=== PATIENT | female | born 1995 | race Caucasian/White ===

== ENCOUNTER 2020-03-24 03:44 | Emergency (ER) | payer OTHER, SELFPAY ==
[2020-03-24 03:58] VITALS: BP 149/90; PULSE 81; RESP 26; TEMP 36.9; O2SAT 100; BMI 43.6
--- NOTE | 2020-03-24 03:58 | ED_ITS ---
HPI - Female Genitourinary General Stated complaint: flank pain Time Seen by Provider: 03/24/20 03:53 Related Data Allergies Allergy/AdvReac Type Severity Reaction Status Date / Time No Known Allergies Allergy Unverified 12/24/19 16:28 [facility] Past Medical History Medical History (Updated 03/24/20 @ 04:00 by Mark Magaña) Kidney calculi
--- NOTE | 2020-03-24 04:06 | ED_ITS ---
HPI - Abdominal Pain General Chief Complaint: Abdominal Pain Stated Complaint: flank pain Time Seen by Provider: 03/24/20 03:53 Source: patient Mode of arrival: ambulatory Limitations: no limitations History of Present Illness HPI narrative: This is a 24-year-old female who presents with onset right flank pain that started yesterday and she states that went away and then woke her up to 30 in the morning with excruciating pain that is located in the right lower quadrant she also feels it in her back with some radiation to the groin area. This is not been associated with any fever, chills, nausea, vomiting, urinary pain/burning/frequency. Patient states that her period is irregular but that she is not sexually active. Related Data Allergies Allergy/AdvReac Type Severity Reaction Status Date / Time No Known Allergies Allergy Unverified 12/24/19 16:28 Review of Systems Review of Systems Pertinent positives and negatives as stated in HPI 10 point review of systems is otherwise negative. Physical Exam Vital Signs: Vital Signs: Last Vital Signs Temp 98.5 F 03/24/20 03:58 Pulse 75 03/24/20 06:14 Resp 20 03/24/20 06:14 BP 116/76 03/24/20 06:14 Pulse Ox 100 03/24/20 06:14 Body Mass Index 43.6 VITAL SIGNS: Reviewed. GENERAL: Well developed, well nourished, in no acute distress. HEAD: Normocephalic/atraumatic, EYES: PERRLA, EOMI intact without pain, no nystagmus/pallor/icterus noted EARS: Ext canals without abnormality, TMs non-bulging and non-erythematous NOSE: Nares patent bilateral OROPHARYNX: no oral lesions noted, posterior pharynx clear and non-erythematous without noted tonsillar enlargement/erythema/exudates NECK: Supple, no adenopathy LUNGS: Normal breath sounds. No adventitious sounds or accessory muscle use. SpO2<100> CARDIOVASCULAR: Regular rate and rhythm without noted murmurs, no JVD or lower extremity edema. ABDOMEN: Soft, RLQ tenderness without rebound, non-distended with bowel sounds. No rigidity. No guarding. No palpable masses or hernias noted MUSCULOSKELETAL: No tenderness, deformities, or effusions noted on gross inspection. EXTREMITIES: No cyanosis, clubbing or edema. SKIN: Inspection of the skin reveals no rashes, ulcerations, jaundice, pallor, o r petechiae. NEUROLOGIC: Alert and oriented x 4. Strength and sensation to light touch were grossly intact x 4. Course Course Course Narrative: This is a 24-year-old female with history and clinical presentation suggestive of renal colic but will rule out appendicitis and doubt UTI or ovarian cyst. -labs, UA, U preg, pain medication, Zofran, IV fluids, CT scan Signed out to Dr Tenorio MDM - Abdominal Pain Lab Data Result diagrams: 03/24/20 04:28 03/24/20 04:28 Labs: Lab Results 03/24/20 03/24/20 Range/Units 04:28 04:28 WBC 7.6 (4.8-10.8) X10*3/uL RBC 5.17 (4.20-5.50) X10*6/uL Hgb 13.3 (12.0-16.0) g/dl Hct 40.6 (37-47) % MCV 78.5 L (80-98) fL MCH 25.7 L (27.0-33.0) pg MCHC 32.8 (31.0-35.0) g/dl RDW 13.1 (11.0-16.0) % Plt Count 355 (160-400) X10*3/uL MPV 9.1 L (9.4-12.3) fL Immature Gran % (Auto) 0.1 (0.0-0.4) % Neut % (Auto) 56.7 (45-73) % Lymph % (Auto) 31.3 (20-40) % [place] % (Auto) 9.1 (2-11) % Eos % (Auto) 2.1 (0-4) % Baso % (Auto) 0.7 (0-2) % Lymph # (Auto) 2.4 (1.2-4.9) X10*3/uL [place] # (Auto) 0.7 (0.1-1.2) X10*3/uL Eos # (Auto) 0.2 (0.0-0.4) X10*3/uL Baso # (Auto) 0.1 (0.0-0.2) X10*3/uL Abs Immat Gran (auto) 0.01 (0.00-0.03) X10*3/uL Absolute Neuts (auto) 4.3 (2.0-8.3) X10*3/uL Absolute Nucleated RBC 0.000 (0.0-0.012) X10*3/uL Nucleated RBC % (auto) 0.0 (0.0-0.2) /100WBC Sodium 138 (135-145) mmol/L Potassium 4.2 (3.3-5.1) mmol/l Chloride 103 (96-108) mmol/L Carbon Dioxide 22 (22-29) mmol/L Anion Gap 17 (12-20) BUN 13 (9-16) mg/dL Creatinine 0.74 (0.5-1.4) mg/dL Estim Creat Clear Calc 157.9 Estimated GFR > 60 Random Glucose 114 (60-115) mg/dL Calcium 8.8 (8.4-10.2) mg/dL Total Bilirubin 0.4 (0.0-1.0) mg/dL AST 25 (5-31) U/L ALT 38 H (0-31) U/L Alkaline Phosphatase 75 (39-117) U/L Total Protein 7.6 (6.5-8.0) g/dL Albumin 4.2 (3.5-5.0) g/dL Beta HCG, Quant < 2 mIU/mL [facility] Past Medical History Source: nursing notes reviewed Medical History Kidney calculi Social History Social History Alcohol intake: never Smoking Status: Never smoker Use of substances other than those prescribed or required for medical reasons: No Advance Directives: No Advance Directives Information Provided: No
[2020-03-24 04:32] VITALS: RESP 20
[2020-03-24 04:32] LABS: Basophils Absolute Auto 0.1 X10*3/uL (0.0-0.2); Basophils Percent Auto 0.7 % (0-2); Eosinophils Absolute Auto 0.2 X10*3/uL (0.0-0.4); Eosinophils Percent Auto 2.1 % (0-4); Hematocrit 40.6 % (37-47); Hemoglobin 13.3 g/dl (12.0-16.0); Imm Gran Abs Auto 0.01 X10*3/uL (0.00-0.03); Imm Gran Pct Auto 0.1 % (0.0-0.4); Lymphocytes Absolute Auto 2.4 X10*3/uL (1.2-4.9); Lymphocytes Percent Auto 31.3 % (20-40); Mean Corpuscular HGB Conc 32.8 g/dl (31.0-35.0); Mean Corpuscular Hemoglobin 25.7 pg (27.0-33.0); Mean Corpuscular Volume 78.5 fL (80-98); Mean Platelet Volume 9.1 fL (9.4-12.3); Monocytes Absolute Auto 0.7 X10*3/uL (0.1-1.2); Monocytes Percent Auto 9.1 % (2-11); Neutrophils Absolute Auto 4.3 X10*3/uL (2.0-8.3); Neutrophils Percent Auto 56.7 % (45-73); Platelet Count 355 X10*3/uL (160-400); Red Blood Count 5.17 X10*6/uL (4.20-5.50); Red Cell Distribution Width 13.1 % (11.0-16.0); White Blood Count 7.6 X10*3/uL (4.8-10.8)
[2020-03-24] MEDS: fentaNYL citrate/PF 100 MCG/2 ML VIAL 25 MCG IVPUSH (04:32)
[2020-03-24] MEDS: ondansetron HCL 4 MG/2 ML VIAL IVPUSH (04:32)
[2020-03-24 04:35] LABS: MANUAL DIFF FLAG NO
[2020-03-24 04:58] VITALS: BP 141/92; PULSE 60; RESP 18; O2SAT 96
[2020-03-24] MEDS: Ketorolac Tromethamine 15 MG/ML VIAL IVPUSH (05:05)
[2020-03-24 05:21] LABS: HCG Quantitative < 2 mIU/mL
[2020-03-24 05:23] LABS: Alanine Aminotransferase 38 U/L (0-31); Albumin Level 4.2 g/dL (3.5-5.0); Alkaline Phosphatase 75 U/L (39-117); Anion Gap 17 (12-20); Aspartate Amino Transferase 25 U/L (5-31); Bilirubin Total 0.4 mg/dL (0.0-1.0); Blood Urea Nitrogen 13 mg/dL (9-16); Calcium 8.8 mg/dL (8.4-10.2); Carbon Dioxide 22 mmol/L (22-29); Chloride 103 mmol/L (96-108); Creatinine Clr Calc Pharmacy 157.9; Estimated Glomerular Filt Rate > 60; Glucose Random 114 mg/dL (60-115); Potassium 4.2 mmol/l (3.3-5.1); Sodium 138 mmol/L (135-145); Total Protein 7.6 g/dL (6.5-8.0)
--- NOTE | 2020-03-24 05:23 | PC.NURSE ---
pt is in the bathroom. pain level is 3/10 and feels improved. labs pending.
--- NOTE | 2020-03-24 05:25 | CT_ITS ---
EXAMINATION: CT ABDOMEN AND PELVIS WITHOUT CONTRAST CLINICAL INFORMATION: Right flank pain. COMPARISON: 10/25/2017. TECHNIQUE: Contiguous axial thin section helical images of the abdomen and pelvis were performed without oral or IV contrast. The data set was reformatted in the coronal and sagittal planes and reviewed on an independent workstation. DLP: 974 mGy-cm. FINDINGS: The visualized lung bases are clear. The visualized portions of the heart are unremarkable. The liver is of normal size and attenuation without focal lesions nor intrahepatic biliary ductal dilation. A normal gallbladder is identified. There is no wall thickening or discernible pericholecystic fluid. The spleen, pancreas, adrenal glands are unremarkable. Both kidneys are of normal size and attenuation. There is a 3 mm obstructive right UVJ calculus with associated grade 2 hydroureteronephrosis. There is no abdominal free fluid. There is neither mesenteric nor retroperitoneal lymphadenopathy. Normal unopacified loops of small and large bowel are identified. A normal appendix is present. There is no pelvic free fluid. The urinary bladder is unremarkable. There is neither pelvic nor inguinal lymphadenopathy. Bone windows: Neither sclerotic nor lytic bone lesions are identified. CT/CT abdomen pelvis wo con IMPRESSION: Right grade 2 hydroureteronephrosis secondary to an obstructive 3 mm right UVJ calculus. Automated exposure control (Care Dose) Adjustment of the mA and/or kv according to patient size (this includes techniques or standardized protocols for targeted exams where dose is matched to indication / reason for exam; i.e. extremities or head).
[2020-03-24 06:14] VITALS: BP 116/76; PULSE 75; RESP 20; O2SAT 100
== END 2020-03-24 07:21 | disposition home or self-care (01) ==
PROVIDERS: Student in an Organized Health Care Education/Training Program; Emergency Provider Emergency Medicine Emergency Medical Services
DX: R10.31 Right lower quadrant pain (principal)
CPT/HCPCS: 36415; 74176; 80053; 84702; 85025; 96374; 96375; 99284; J1885; J2405; J3010

== ENCOUNTER 2021-05-10 14:24 | Emergency (ER) | payer OTHER, SELFPAY ==
[2021-05-10 14:30] VITALS: BP 139/82; PULSE 93; RESP 16; TEMP 37; O2SAT 99; BMI 38.7
[2021-05-10 15:33] LABS: Appearance Urine HAZY; Color Urine YELLOW; Glucose Urine UA NEG (NEG); Leukocyte Esterase Urine NEG (NEG); Nitrite Urine NEG (NEG); PH 5.5 (5.0-8.0); Specific Gravity - Urine >= 1.030 (1.005-1.025); UACC Culture Trigger NO; Urine Blood 3+ (NEG); Urine Ketones NEG (NEG); Urine Protein TRACE MG/DL (NEG-TRACE)
[2021-05-10 15:37] LABS: MANUAL DIFF FLAG NO
[2021-05-10 15:39] LABS: Basophils Percent Auto 0.5 % (0-2); Eosinophils Absolute Auto 0.1 X10*3/uL (0.0-0.4); Eosinophils Percent Auto 1.1 % (0-4); Hematocrit 39.8 % (37.0-47.0); Hemoglobin 13.2 g/dl (12.0-16.0); Imm Gran Abs Auto 0.02 X10*3/uL (0.00-0.03); Imm Gran Pct Auto 0.3 % (0.0-0.4); Lymphocytes Absolute Auto 2.2 X10*3/uL (1.2-4.9); Lymphocytes Percent Auto 30.5 % (20-40); Mean Corpuscular HGB Conc 33.2 g/dl (31.0-35.0); Mean Corpuscular Volume 78.5 fL (80.0-98.0); Mean Platelet Volume 9.3 fL (9.4-12.3); Monocytes Absolute Auto 0.4 X10*3/uL (0.1-1.2); Monocytes Percent Auto 5.4 % (2-11); Neutrophils Absolute Auto 4.5 x10*3/uL (2.0-8.3); Neutrophils Percent Auto 62.2 % (45-73); Platelet Count 362 X10*3/uL (160-400); Red Blood Count 5.07 X10*6/uL (4.20-5.50); Red Cell Distribution Width 13.2 % (11.0-16.0); White Blood Count 7.3 X10*3/uL (4.8-10.8)
[2021-05-10 15:41] LABS: Bacteria Urine 1+ /LPF; Squamous Epithelial Cell Urine 1+ /LPF
[2021-05-10 15:42] LABS: WBC Urine 0 /HPF (0-4)
[2021-05-10 15:47] LABS: Alanine Aminotransferase 20 U/L (0-31); Albumin Level 4.3 g/dL (3.5-5.0); Alkaline Phosphatase 92 U/L (39-117); Anion Gap 12 (12-20); Aspartate Amino Transferase 17 U/L (5-31); Bilirubin Total 0.4 mg/dL (0.0-1.0); Blood Urea Nitrogen 9 mg/dL (9-16); Calcium 9.6 mg/dL (8.4-10.2); Carbon Dioxide 26 mmol/L (22-29); Chloride 106 mmol/L (96-108); Creatinine Clr Calc Pharmacy 151.2; Estimated Glomerular Filt Rate > 60; Glucose Random 99 mg/dL (60-115); Potassium 4.4 mmol/L (3.3-5.1); Sodium 140 mmol/L (135-145); Total Protein 7.7 g/dL (6.5-8.0)
--- NOTE | 2021-05-10 17:28 | ED_ITS ---
HPI - Abdominal Pain General Chief Complaint: Abdominal Pain Stated Complaint: Kidney stone Time Seen by Provider: 05/10/21 17:11 Source: patient and old records reviewed History of Present Illness HPI narrative: Patient with left flank pain radiating to left groin which started earlier today. She has a history of kidney stones and states this is identical to past except it hurts a little worse than usual. She thinks she has had about 5 kidney stones in her life. All up and confirmed with CT scan. Some nausea without vomiting. Pain at times is 10/10. Currently it is 5/10. It is waxing and waning. It started in her back and now is radiating to her left lower abdomen. No dysuria his hematuria hesitancy or frequency. No fevers or chills. No other recent illness. Related Data Previous Rx's Medication Instructions Recorded morphine 15 mg immediate release 15 mg PO Q4H PRN #12 tab 03/24/20 tablet ibuprofen 800 mg tablet 800 mg PO Q8H PRN #30 tab 05/10/21 oxycodone-acetaminophen 5 mg-325 1 tab PO TID PRN #7 tab 05/10/21 mg tablet (Percocet) tamsulosin 0.4 mg capsule (Flomax) 0.4 mg PO DAILY #10 cap 05/10/21 Allergies Allergy/AdvReac Type Severity Reaction Status Date / Time No Known Allergies Allergy Unverified 12/24/19 16:28 Review of Systems Comments: No fevers or chills Comments: No chest pain Comments: No dyspnea cough or sputum Comments: Left lower abdominal pain radiating to her flank Comments: No dysuria hematuria hesitancy or frequency Comments: No extremity pain Comments: No rash Comments: No weakness numbness or paresthesias Physical Exam Verdana 4l Vital Signs: Verdana 4d Verdana 4d Vital Signs: Verdana 4d Verdana 4Bd Last Vital Signs Verdana 4d Post Doctoral Fellow New 4d Post Doctoral Fellow New 4d Temp 98.6 F 05/10/21 14:30 Post Doctoral Fellow New 4d Pulse 93 05/10/21 14:30 Post Doctoral Fellow New 4d Resp 16 05/10/21 14:30 BP 139/82 05/10/21 14:30 Pulse Ox 99 05/10/21 14:30 BMI result Body Mass Index 38.7 Const: Other: Awake and alert in no acute distress Resp: Other: Clear and equal bilaterally without wheezes rales or rhonchi Cardio: Other: Regular rate and rhythm without murmurs rubs or gallops GI: Other: Soft, nondistended, normoactive bowel sounds. Minimal tenderness left lower abdomen. Minimal tenderness on the left flank percussion. Skin: Other: Warm pink and dry Neuro: Other: Neurologically nonfocal Extrem: Other: Ambulates without difficulty Course Course Course Narrative: Kidney stone Pyelonephritis Musculoskeletal pain Workup shows red cells in the urinalysis without evidence of infection. Remainder of workup is unremarkable. I discussed with patient option of ordering a CT scan to confirm this is kidney stone versus treating empirically as symptoms are consistent with multiple prior confirmed episodes of stone. Patient opts to not have a CT scan today. Will follow up with Urology. In the meantime will treat with IV fluids and IV Toradol for pain control. Will discharge home with prescription for ibuprofen, Percocet, Flomax. 6:36 p.m.. Patient is feeling much better. Stable for discharge home MDM - Abdominal Pain Lab Data Result diagrams: 05/10/21 15:29 05/10/21 15:28 Labs: Lab Results 05/10/21 05/10/21 05/10/21 Range/Units 15:27 15:28 15:29 WBC 7.3 (4.8-10.8) X10*3/uL RBC 5.07 (4.20-5.50) X10*6/uL Hgb 13.2 (12.0-16.0) g/dl Hct 39.8 (37.0-47.0) % MCV 78.5 L (80.0-98.0) fL MCH 26.0 L (27.0-33.0) pg MCHC 33.2 (31.0-35.0) g/dl RDW 13.2 (11.0-16.0) % Plt Count 362 (160-400) X10*3/uL MPV 9.3 L (9.4-12.3) fL Immature Gran % (Auto) 0.3 (0.0-0.4) % Neut % (Auto) 62.2 (45-73) % Lymph % (Auto) 30.5 (20-40) % [place] % (Auto) 5.4 (2-11) % Eos % (Auto) 1.1 (0-4) % Baso % (Auto) 0.5 (0-2) % Lymph # (Auto) 2.2 (1.2-4.9) X10*3/uL [place] # (Auto) 0.4 (0.1-1.2) X10*3/uL Eos # (Auto) 0.1 (0.0-0.4) X10*3/uL Baso # (Auto) 0.0 (0.0-0.2) X10*3/uL Abs Immat Gran (auto) 0.02 (0.00-0.03) X10*3/uL Absolute Neuts (auto) 4.5 (2.0-8.3) x10*3/uL Absolute Nucleated RBC 0.000 (0.0-0.012) X10*3/uL Nucleated RBC % (auto) 0.0 (0.0-0.2) /100WBC Sodium 140 (135-145) mmol/L Potassium 4.4 (3.3-5.1) mmol/L Chloride 106 (96-108) mmol/L Carbon Dioxide 26 (22-29) mmol/L Anion Gap 12 (12-20) BUN 9 (9-16) mg/dL Creatinine 0.71 (0.5-1.4) mg/dL Estim Creat Clear Calc 151.2 Estimated GFR > 60 Random Glucose 99 (60-115) mg/dL Calcium 9.6 D (8.4-10.2) mg/dL Total Bilirubin 0.4 (0.0-1.0) mg/dL AST 17 (5-31) U/L ALT 20 (0-31) U/L Alkaline Phosphatase 92 D (39-117) U/L Total Protein 7.7 (6.5-8.0) g/dL Albumin 4.3 (3.5-5.0) g/dL Urine Color YELLOW Urine Appearance HAZY Urine pH 5.5 (5.0-8.0) Ur Specific [place] >= 1.030 H (1.005-1.025) Urine Protein TRACE (NEG-TRACE) MG/DL Urine Glucose (UA) NEG (NEG) MG/DL Urine Ketones NEG (NEG) MG/DL Urine Blood 3+ H (NEG) Urine Nitrite NEG (NEG) Ur Leukocyte Esterase NEG (NEG) Urine RBC 15-29 H (0) /HPF Urine WBC 0 (0-4) /HPF Ur Squamous Epith Cells 1+ /LPF Urine Bacteria 1+ /LPF Urine Yeast 1+ /HPF Discharge Plan Discharge Clinical Impression: Kidney stone Patient Disposition: Home, Self-Care Instructions: Kidney Stones (ED), How to Strain Your Urine (ED) Prescriptions: New oxycodone-acetaminophen [Percocet] 5-325 mg tablet 1 tab PO TID PRN (Reason: pain) Qty: 7 0RF tamsulosin [Flomax] 0.4 mg capsule 0.4 mg PO DAILY Qty: 10 0RF ibuprofen 800 mg tablet 800 mg PO Q8H PRN (Reason: pain) Qty: 30 0RF No Action morphine 15 mg tablet 15 mg PO Q4H PRN (Reason: pain) Qty: 12 0RF Referrals: Burt Jimenez MD [Physician] - 2 days Stand Alone Forms: Work/School Release [facility] Past Medical History Medical History Kidney calculi Social History Social History Alcohol intake: never Advance Directives: No Advance Directives Information Provided: No Patient : No
[2021-05-10] MEDS: 0.9 % Sodium Chloride 1,000 ML 999 ML IV (17:32)
[2021-05-10] MEDS: Ketorolac Tromethamine 30 MG/ML VIAL IVPUSH (17:32)
[2021-05-10 19:11] VITALS: BP 118/77; PULSE 67; RESP 16; O2SAT 100
== END 2021-05-10 19:13 | disposition home or self-care (01) ==
PROVIDERS: Emergency Provider Emergency Medicine; PCP Nurse Practitioner Family
DX: N20.0 Calculus of kidney (principal); R10.9 Unspecified abdominal pain; Z79.899 Other long term (current) drug therapy
CPT/HCPCS: 36415; 80053; 81001; 85025; 96361; 96374; 99283; 99284; J1885

== ENCOUNTER 2021-05-30 18:59 | Emergency (ER) | payer OTHER, SELFPAY ==
--- NOTE | ~2021-05-30 | CT_ITS ---
EXAMINATION: CT ABDOMEN AND PELVIS WITHOUT CONTRAST CLINICAL INFORMATION: Left flank pain with history of renal colic COMPARISON: CT abdomen pelvis 03/24/2020 TECHNIQUE: Multidetector volumetric imaging was performed from the superior aspect of the liver through the pubic symphysis. Sagittal and coronal reformatted images were obtained on the technologist's workstation. This CT examination was performed using dose optimization techniques as appropriate, variously including the following: *Automated exposure control *Adjustment of mA and/or kV according to patient size (this includes techniques or standardized protocols for targeted exams where dose is matched to indication/reason for exam; i.e. extremities or head) *Use of iterative reconstruction technique DLP: 913 mGy-cm FINDINGS: LUNG BASES: The visualized lung bases are unremarkable. LIVER, GALLBLADDER, AND BILIARY TREE: The liver is normal in size, shape, and attenuation. No focal hepatic lesion or biliary ductal dilatation is present. The gallbladder is unremarkable with no evidence of radiopaque gallstones, gallbladder wall thickening, or obvious pericholecystic inflammatory changes. PANCREAS: Unremarkable. SPLEEN: Unremarkable. A splenule is present. ADRENAL GLANDS: Unremarkable. KIDNEYS AND URETERS: In the left kidney, there is mild prominence of the renal collecting system and there is a 4 mm stone at the left ureterovesical junction. No intrarenal calculi are seen on the left and no renal masses are seen In the right kidney, there is a punctate 2 mm lower pole calculus present. No pelvocaliectasis or renal masses are seen. No ureteral calculi. BLADDER: Aside from stone at left UVJ, no other abnormality is seen GASTROINTESTINAL TRACT: The small and large bowel are unremarkable. The appendix is unremarkable. ABDOMINAL WALL: No significant hernia is appreciated. LYMPH NODES: No retroperitoneal lymphadenopathy. VASCULAR: Unremarkable. PELVIC VISCERA: An anteverted uterus is present. An abnormal adnexal mass or free intraperitoneal fluid is not seen OSSEOUS STRUCTURES: Unremarkable. CT/CT abdomen pelvis wo con IMPRESSION: * 4 mm obstructing calculus at the left ureterovesical junction. * Small 2 mm nonobstructing calculus in the right lower pole. Fleischner guidelines were followed.
[2021-05-30 20:03] VITALS: BP 134/75; PULSE 96; RESP 18; TEMP 36.4; O2SAT 99; BMI 40.3
[2021-05-30 20:37] LABS: Appearance Urine CLEAR; Color Urine YELLOW; Glucose Urine UA NEG (NEG); Leukocyte Esterase Urine NEG (NEG); Nitrite Urine NEG (NEG); Specific Gravity - Urine >= 1.030 (1.005-1.025); Urine Blood NEG (NEG); Urine Ketones NEG (NEG); Urine Protein NEG (NEG-TRACE)
[2021-05-30 22:03] LABS: UPreg QC Valid YES; Urine Pregnancy NEGATIVE (NEGATIVE)
--- NOTE | 2021-05-30 22:19 | ED_ITS ---
HPI - Abdominal Pain General Chief Complaint: Urogenital-Female Stated Complaint: lower back pain Time Seen by Provider: 05/30/21 20:20 Source: patient Mode of arrival: ambulatory History of Present Illness HPI narrative: 26-year-old presents with left-sided back pain/flank pain that radiates into the left pelvic area and results in urinary frequency and burning, and has a history of renal colic. The symptoms have been associated with nausea when the pain is maximal but denies any fever, chills. Related Data Previous Rx's Medication Instructions Recorded morphine 15 mg immediate release 15 mg PO Q4H PRN #12 tab 03/24/20 tablet ibuprofen 800 mg tablet 800 mg PO Q8H PRN #30 tab 05/10/21 oxycodone-acetaminophen 5 mg-325 1 tab PO TID PRN #7 tab 05/10/21 mg tablet (Percocet) tamsulosin 0.4 mg capsule (Flomax) 0.4 mg PO DAILY #10 cap 05/10/21 ketorolac 10 mg tablet 10 mg PO Q6H PRN 5 Days #20 tab 05/31/21 prednisone 20 mg tablet 20 mg PO DAILY #4 tab 05/31/21 tamsulosin 0.4 mg capsule (Flomax) 0.4 mg PO BEDTIME #4 cap 05/31/21 Allergies Allergy/AdvReac Type Severity Reaction Status Date / Time No Known Allergies Allergy Verified 05/30/21 20:03 Review of Systems Review of Systems Pertinent positives and negatives as stated in HPI 10 point review of systems is otherwise negative. PMFSH Past Medical History Source: nursing notes reviewed Medical History Kidney calculi Social History Social History Alcohol intake: never Advance Directives: No Advance Directives Information Provided: No Physical Exam ED Vital Signs: Vital Signs - 24 hr 05/30/21 20:03 05/30/21 23:14 Temperature 97.6 F Pulse Rate 96 85 Respiratory Rate 18 17 Blood Pressure 134/75 128/88 Pulse Oximetry 99 97 BMI result Body Mass Index 40.3 VITAL SIGNS: Reviewed. GENERAL: Well developed, well nourished, in no acute distress. HEAD: Normocephalic/atraumatic EYES: PERRLA, EOMI EARS: Ext canals without abnormality OROPHARYNX: no oral lesions noted, posterior pharynx clear LUNGS: Normal breath sounds. No adventitious sounds or accessory muscle use. SpO2<99> CARDIOVASCULAR: Regular rate and rhythm without noted murmurs ABDOMEN: Soft, non-tender, non-distended with bowel sounds, left CVA tenderness SKIN: Inspection of the skin reveals no rashes NEUROLOGIC: Alert and oriented x 4. Strength and sensation to light touch were grossly intact x 4. Course Course Course Narrative: 26-year-old who presents with history and clinical presentation consistent with renal colic. Patient was provided with Flomax and IM Toradol and will undergo a noncontrast CT scan. On review of all investigations there is a 4 mm reported obstructing stone however no reported concomitant hydro nephrosis. On re-evaluation patient's p ain has significantly improved and she is not nauseous. She has a follow-up appointment with [facility] but will be provided with a referral for Dr. Doherty and can call 1st thing in the morning. MDM - Abdominal Pain Lab Data Labs: Lab Results 05/30/21 05/30/21 Range/Units 20:27 20:27 Urine Color YELLOW Urine Appearance CLEAR Urine pH 6.0 (5.0-8.0) Ur Specific [place] >= 1.030 H (1.005-1.025) Urine Protein NEG (NEG-TRACE) MG/DL Urine Glucose (UA) NEG (NEG) MG/DL Urine Ketones NEG (NEG) MG/DL Urine Blood NEG (NEG) Urine Nitrite NEG (NEG) Ur Leukocyte Esterase NEG (NEG) Urine Test NEGATIVE (NEGATIVE) Discharge Plan Discharge Clinical Impression: Renal colic, Ureterolithiasis Patient Disposition: Home, Self-Care Instructions: Renal Colic (ED), Ureteral Stones (ED) Additional Instructions: 1. Tylenol 1000 mg, orally, every 6 hours as needed for pain control. Do not exceed 4000 mg within 24 hours. 2. You have been provided with a prescription for Toradol and should stop all other NSAIDs (ibuprofen, Motrin, Aleve, Naprosyn). 3. You should significantly increase your water intake and avoid carbonated/caffeinated products. 4. Although you have an appointment with doing Neurology, IM providing you with a Urology referral to see [facility] and you should call that office 1st thing in the morning. Return to the ER for worsening symptoms. Prescriptions: New tamsulosin [Flomax] 0.4 mg capsule 0.4 mg PO BEDTIME Qty: 4 0RF prednisone 20 mg tablet 20 mg PO DAILY Qty: 4 0RF ketorolac 10 mg tablet 10 mg PO Q6H PRN (Reason: pain) 5 Days Qty: 20 0RF Rx Instructions: Patient received Toradol in the emergency room. Patient was instructed to stop all other NSAIDs. No Action morphine 15 mg tablet 15 mg PO Q4H PRN (Reason: pain) Qty: 12 0RF oxycodone-acetaminophen [Percocet] 5-325 mg tablet 1 tab PO TID PRN (Reason: pain) Qty: 7 0RF tamsulosin [Flomax] 0.4 mg capsule 0.4 mg PO DAILY Qty: 10 0RF ibuprofen 800 mg tablet 800 mg PO Q8H PRN (Reason: pain) Qty: 30 0RF Referrals: Burt Jimenez MD [Physician] - 2 days (LUVJ 4mm obstructing stone, no hydro mentioned )
[2021-05-30] MEDS: Ketorolac Tromethamine 15 MG/ML VIAL IM (22:36)
[2021-05-30] MEDS: Tamsulosin HCL 0.4 MG CAPSULE PO (22:36)
[2021-05-30 23:14] VITALS: BP 128/88; PULSE 85; RESP 17; O2SAT 97
== END 2021-05-31 00:28 | disposition home or self-care (01) ==
PROVIDERS: Emergency Provider Student in an Organized Health Care Education/Training Program
DX: N20.2 Calculus of kidney with calculus of ureter (principal)
CPT/HCPCS: 74176; 81003; 81025; 96372; 99284; J1885

== ENCOUNTER 2021-07-23 03:43 | Emergency (ER) | payer OTHER, SELFPAY ==
--- NOTE | ~2021-07-23 | CT_ITS ---
EXAMINATION: CT ABDOMEN AND PELVIS WITHOUT CONTRAST CLINICAL INFORMATION: Right flank pain COMPARISON: 05/30/2021 TECHNIQUE: Multidetector volumetric imaging was performed from the superior aspect of the liver through the pubic symphysis. Sagittal and coronal reformatted images were obtained on the technologist's workstation. This CT examination was performed using dose optimization techniques as appropriate, variously including the following: *Automated exposure control *Adjustment of mA and/or kV according to patient size (this includes techniques or standardized protocols for targeted exams where dose is matched to indication/reason for exam; i.e. extremities or head) *Use of iterative reconstruction technique DLP: 971 mGy-cm FINDINGS: LUNG BASES: The visualized lung bases are unremarkable. LIVER, GALLBLADDER, AND BILIARY TREE: The liver is normal in size, shape, and attenuation. No focal hepatic lesion or biliary ductal dilatation is present. The gallbladder is unremarkable with no evidence of radiopaque gallstones, gallbladder wall thickening, or obvious pericholecystic inflammatory changes. PANCREAS: Unremarkable. SPLEEN: Unremarkable. ADRENAL GLANDS: Unremarkable. KIDNEYS AND URETERS: There is a 2 mm calculus within the RIGHT ureterovesical junction associated with mild upstream hydroureteronephrosis. Previously seen 4 mm calculus at the LEFT ureterovesical junction has passed in the interim. BLADDER: Unremarkable. GASTROINTESTINAL TRACT: The small and large bowel are unremarkable. The appendix is unremarkable. ABDOMINAL WALL: No significant hernia is appreciated. LYMPH NODES: Normal. VASCULAR: Unremarkable. PELVIC VISCERA: Uterus and adnexa unremarkable. OSSEOUS STRUCTURES: Unremarkable. CT/CT abdomen pelvis wo con IMPRESSION: Previously seen 2 mm right intrarenal calculus has passed to the RIGHT ureterovesical junction, and is now associated with mild upstream hydroureteronephrosis.
[2021-07-23 03:56] VITALS: BP 156/96; PULSE 87; RESP 14; TEMP 36.6; O2SAT 99; BMI 40.3
[2021-07-23 03:57] LABS: Basophils Absolute Auto 0.1 X10*3/uL; Basophils Percent Auto 0.4 %; Eosinophils Absolute Auto 0.2 X10*3/uL; Eosinophils Percent Auto 1.2 %; Hematocrit 38.3 %; Hemoglobin 12.7 g/dl; Imm Gran Abs Auto 0.03 X10*3/uL (0.00-0.03); Imm Gran Pct Auto 0.2 % (0.0-0.4); Lymphocytes Absolute Auto 3.5 X10*3/uL; MANUAL DIFF FLAG NO; Mean Corpuscular HGB Conc 33.2 g/dl; Mean Corpuscular Hemoglobin 26.1 pg; Mean Corpuscular Volume 78.8 fL; Mean Platelet Volume 9.2 fL (9.4-12.4); Monocytes Absolute Auto 0.8 X10*3/uL; Monocytes Percent Auto 6.9 %; Neutrophils Absolute Auto 7.5 x10*3/uL; Neutrophils Percent Auto 62.3 %; Platelet Count 355 X10*3/uL; Red Blood Count 4.86 X10*6/uL; Red Cell Distribution Width 13.2 % (11.0-16.0); White Blood Count 12.1 X10*3/uL
[2021-07-23 04:14] LABS: Alanine Aminotransferase 18 U/L; Albumin Level 4.2 g/dL; Alkaline Phosphatase 85 U/L; Anion Gap 17; Aspartate Amino Transferase 16 U/L; Bilirubin Total 0.5 mg/dL; Blood Urea Nitrogen 13 mg/dL; Calcium 9.5 mg/dL; Carbon Dioxide 23 mmol/L; Chloride 103 mmol/L; Estimated Glomerular Filt Rate > 60; Glucose Random 113 mg/dL; Potassium 3.6 mmol/L; Sodium 139 mmol/L; Total Protein 7.3 g/dL
[2021-07-23 04:59] LABS: HCG Quantitative < 2 mIU/mL
--- NOTE | 2021-07-23 05:08 | ED.ABDPAIN ---
HPI - Abdominal Pain General Chief Complaint: Abdominal Pain Stated Complaint: Flank pain Time Seen by Provider: 07/23/21 04:35 Source: patient Mode of arrival: ambulatory History of Present Illness HPI narrative: 26-year-old patient with history of renal colic presents with onset of right flank pain radiating and the anterior abdomen associated with nausea and vomiting at approximately 02:30 is morning. At this time no fevers, chills and no urinary symptoms. Related Data Previous Rx's Medication Instructions Recorded morphine 15 mg immediate release 15 mg PO Q4H PRN #12 tab 03/24/20 tablet ibuprofen 800 mg tablet 800 mg PO Q8H PRN #30 tab 05/10/21 oxycodone-acetaminophen 5 mg-325 1 tab PO TID PRN #7 tab 05/10/21 mg tablet (Percocet) tamsulosin 0.4 mg capsule (Flomax) 0.4 mg PO DAILY #10 cap 05/10/21 ketorolac 10 mg tablet 10 mg PO Q6H PRN 5 Days #20 tab 05/31/21 prednisone 20 mg tablet 20 mg PO DAILY #4 tab 05/31/21 tamsulosin 0.4 mg capsule (Flomax) 0.4 mg PO BEDTIME #4 cap 05/31/21 ketorolac 10 mg tablet 10 mg PO Q6H PRN 5 Days #20 tab 07/23/21 ondansetron 4 mg disintegrating 4 mg PO Q8H PRN #7 tab 07/23/21 tablet tamsulosin 0.4 mg capsule (Flomax) 0.4 mg PO BEDTIME #4 cap 07/23/21 Allergies Allergy/AdvReac Type Severity Reaction Status Date / Time No Known Allergies Allergy Verified 05/30/21 20:03 Review of Systems Review of Systems Pertinent positives and negatives as stated in HPI 10 point review of systems is otherwise negative. COUNTS INCLUDE 234 BEDS AT THE [facility] Past Medical History Source: nursing notes reviewed Medical History Kidney calculi Social History Social History Alcohol intake: never Advance Directives: No Physical Exam ED Vital Signs: Vital Signs - 24 hr 07/23/21 03:56 07/23/21 05:15 Temperature 98 F Pulse Rate 87 84 Respiratory Rate 14 22 Blood Pressure 156/96 134/86 Pulse Oximetry 99 98 BMI result Body Mass Index 40.3 VITAL SIGNS: Reviewed. GENERAL: Well developed, well nourished, in no acute distress. HEAD: Normocephalic/atraumatic EYES: PERRLA, EOMI EARS: Ext canals without abnormality OROPHARYNX: no oral lesions noted, posterior pharynx clear LUNGS: Normal breath sounds. No adventitious sounds or accessory muscle use. SpO2<99> CARDIOVASCULAR: Regular rate and rhythm without noted murmurs ABDOMEN: Soft, tenderness along right flank but no right upper quadrant/epigastric pain, non-distended with bowel sounds, no CVA tenderness MUSCULOSKELETAL: No tenderness, deformities, or effusions noted on gross inspection. EXTREMITIES: No cyanosis, clubbing or edema. SKIN: Inspection of the skin reveals no rashes NEUROLOGIC: Alert and oriented x 4. Strength and sensation to light touch were grossly intact x 4. Course Course Course Narrative: 26-year-old patient with history and clinical presentation consistent with renal colic and suspect ureterolithiasis, will provide pain medication, IV fluids and obtain an abdomen pelvis CT scan. Review of all investigations consistent with small ureterolithiasis at the right UVJ. Patient received antinausea and pain medications with good results and will be discharged home with recommended follow-up with Dr. Jimenez. MDM - Abdominal Pain Lab Data Result diagrams: 07/23/21 03:52 07/23/21 03:52 Labs: Lab Results 07/23/21 07/23/21 07/23/21 Range/Units 03:52 03:52 05:15 WBC 12.1 X10*3/uL RBC 4.86 X10*6/uL Hgb 12.7 g/dl Hct 38.3 % MCV 78.8 fL MCH 26.1 pg MCHC 33.2 g/dl RDW 13.2 (11.0-16.0) % Plt Count 355 X10*3/uL MPV 9.2 L (9.4-12.4) fL Immature Gran % (Auto) 0.2 (0.0-0.4) % Neut % (Auto) 62.3 % Lymph % (Auto) 29.0 % [place] % (Auto) 6.9 % Eos % (Auto) 1.2 % Baso % (Auto) 0.4 % Lymph # (Auto) 3.5 X10*3/uL [place] # (Auto) 0.8 X10*3/uL Eos # (Auto) 0.2 X10*3/uL Baso # (Auto) 0.1 X10*3/uL Abs Immat Gran (auto) 0.03 (0.00-0.03) X10*3/uL Absolute Neuts (auto) 7.5 x10*3/uL Absolute Nucleated RBC 0.000 (0.0-0.012) X10*3/uL Nucleated RBC % (auto) 0.0 (0.0-0.2) /100WBC Sodium 139 mmol/L Potassium 3.6 mmol/L Chloride 103 mmol/L Carbon Dioxide 23 mmol/L Anion Gap 17 BUN 13 mg/dL Creatinine 0.75 mg/dL Estim Creat Clear Calc TNP Estimated GFR > 60 Random Glucose 113 mg/dL Calcium 9.5 mg/dL Total Bilirubin 0.5 mg/dL AST 16 U/L ALT 18 U/L Alkaline Phosphatase 85 U/L Total Protein 7.3 g/dL Albumin 4.2 g/dL Beta HCG, Quant < 2 mIU/mL Urine Color DK YELLOW Urine Appearance HAZY Urine pH 5.5 (5.0-8.0) Ur Specific [place] >= 1.030 H (1.005-1.025) Urine Protein 1+ H (NEG-TRACE) MG/DL Urine Glucose (UA) NEG (NEG) MG/DL Urine Ketones 5 (NEG) MG/DL Urine Blood 3+ H (NEG) Urine Nitrite NEG (NEG) Ur Leukocyte Esterase NEG (NEG) Urine RBC 15-29 H (0) /HPF Urine WBC 0-2 (0-4) /HPF Ur Squamous Epith Cells 3+ /LPF Calcium Oxalate Crystal 3+ /LPF Urine Bacteria 2+ /LPF Urine Mucus 4+ /LPF Discharge Plan Discharge Clinical Impression: Renal colic, Ureterolithiasis Patient Disposition: Home, Self-Care Instructions: Renal Colic (ED), Ureteral Stones (ED) Additional Instructions: 1. Tylenol 1000 mg, orally, every 6 hours as needed for pain control. Do not exceed 4000 mg within 24 hours. Consider using a heating pad for additional symptom relief. 2. You have been prescribed both Toradol as well as Zofran and Flomax. The should be taken as prescribed. 3. You have been provided with a referral to see Urology, Dr. Jimenez. 4. Increase fluid hydration avoid all carbonated and caffeinated products. Return to the ER for worsening symptoms. Prescriptions: New ketorolac 10 mg tablet 10 mg PO Q6H PRN (Reason: pain) 5 Days Qty: 20 0RF Rx Instructions: Patient received Toradol in the emergency room tamsulosin [Flomax] 0.4 mg capsule 0.4 mg PO BEDTIME Qty: 4 0RF ondansetron 4 mg tablet,disintegrating 4 mg PO Q8H PRN (Reason: nausea and vomiting) Qty: 7 0RF No Action morphine 15 mg tablet 15 mg PO Q4H PRN (Reason: pain) Qty: 12 0RF oxycodone-acetaminophen [Percocet] 5-325 mg tablet 1 tab PO TID PRN (Reason: pain) Qty: 7 0RF tamsulosin [Flomax] 0.4 mg capsule 0.4 mg PO DAILY Qty: 10 0RF ibuprofen 800 mg tablet 800 mg PO Q8H PRN (Reason: pain) Qty: 30 0RF tamsulosin [Flomax] 0.4 mg capsule 0.4 mg PO BEDTIME Qty: 4 0RF prednisone 20 mg tablet 20 mg PO DAILY Qty: 4 0RF ketorolac 10 mg tablet 10 mg PO Q6H PRN (Reason: pain) 5 Days Qty: 20 0RF Rx Instructions: Patient received Toradol in the emergency room. Patient was instructed to stop all other NSAIDs. Referrals: Burt Jimenez MD [Physician] -
[2021-07-23 05:15] VITALS: BP 134/86; PULSE 84; RESP 22; O2SAT 98
[2021-07-23 05:21] LABS: Appearance Urine HAZY; Color Urine DK YELLOW; Glucose Urine UA NEG (NEG); Leukocyte Esterase Urine NEG (NEG); Nitrite Urine NEG (NEG); PH 5.5 (5.0-8.0); Specific Gravity - Urine >= 1.030 (1.005-1.025); UACC Culture Trigger NO; Urine Blood 3+ (NEG); Urine Ketones 5 MG/DL (NEG); Urine Protein 1+ MG/DL (NEG-TRACE)
[2021-07-23 05:27] LABS: Bacteria Urine 2+ /LPF; Calcium Oxalate Crystals Urine 3+ /LPF; Mucus Urine 4+ /LPF; Squamous Epithelial Cell Urine 3+ /LPF; WBC Urine 0-2 /HPF (0-4)
--- NOTE | 2021-07-23 06:38 | PC.NURSE ---
pt difficult stick mutl attempts by 2 rns, medications rout changed.
[2021-07-23] MEDS: Tamsulosin HCL 0.4 MG CAPSULE PO (06:44)
[2021-07-23] MEDS: Ketorolac Tromethamine 15 MG/ML VIAL IM (06:44)
[2021-07-23] MEDS: Ondansetron ODT 4 MG TAB.RAPDIS TRANSLINGU (06:44)
== END 2021-07-23 07:12 | disposition home or self-care (01) ==
PROVIDERS: Emergency Provider Student in an Organized Health Care Education/Training Program
DX: N20.1 Calculus of ureter (principal)
CPT/HCPCS: 36415; 74176; 80053; 81001; 84702; 85025; 96360; 96372; 99284; J1885

== ENCOUNTER → 2021-08-15 11:32 | Outpatient (BNVA) | payer OTHER, SELFPAY | PROVIDERS: PCP Nurse Practitioner Family | DX: N20.0 Calculus of kidney (principal) ==